=== PATIENT | female | born 1950 | race Caucasian/White ===

== ENCOUNTER 2016-10-04 09:58 | Day surgery (SDC) | payer MEDICARE ==
[2016-11-17] MEDS ORDERED: LINZESS145 MCG PO (17:24)
[2016-11-17] MEDS ORDERED: LIORESAL DPS20 MG PO (17:24)
[2016-11-17] MEDS ORDERED: COZAAR DPS50 MG PO (17:24)
[2016-11-17] MEDS ORDERED: REQUIP DPS2 MG PO (17:25)
[2016-11-17] MEDS ORDERED: NEURONTIN DPS400 MG PO (17:25)
[2016-11-17] MEDS ORDERED: XARELTO20 MG PO (17:25)
[2016-11-17] MEDS ORDERED: VANCOCIN-DPS1 GM IV (17:25)
[2016-11-17] MEDS ORDERED: PERCOCET 10 DPS1 TAB PO (17:26)
[2016-12-02] MEDS ORDERED: COZAAR DPS25 MG PO (17:13)
[2016-12-02] MEDS ORDERED: LINZESS145 MCG PO (17:13)
[2016-12-02] MEDS ORDERED: NEURONTIN DPS600 MG PO (17:14)
[2016-12-02] MEDS ORDERED: REQUIP DPS2 MG PO (17:14)
[2016-12-02] MEDS ORDERED: LASIX DPS20 MG PO (17:14)
[2016-12-02] MEDS ORDERED: XARELTO20 MG PO (17:16)
[2016-12-02] MEDS ORDERED: VITAMIN D31000 UNIT PO (17:17)
[2016-12-02] MEDS ORDERED: TYLENOL DPS325 MG PO (17:17)
[2016-12-02] MEDS ORDERED: PERCOCET 10 DPS1 TAB PO (17:17)
[2016-12-02] MEDS ORDERED: SENOKOT S1 TAB PO (17:17)
== END 2016-10-04 13:43 | disposition home or self-care (01) ==
DX: N31.9 Neuromuscular dysfunction of bladder, unspecified (principal); N39.45 Continuous leakage; N20.0 Calculus of kidney; R31.0 Gross hematuria; F17.210 Nicotine dependence, cigarettes, uncomplicated; M19.90 Unspecified osteoarthritis, unspecified site; G25.81 Restless legs syndrome; G89.29 Other chronic pain; M81.0 Age-related osteoporosis without current pathological fracture; Z88.0 Allergy status to penicillin; Z88.8 Allergy status to other drugs, medicaments and biological substances; Z79.899 Other long term (current) drug therapy; Z98.890 Other specified postprocedural states

== ENCOUNTER → 2016-10-04 | Outpatient (CLI) | payer MEDICARE ==
[~2016-10-04] MED LIST: COZAAR DPS25 MG PO; COZAAR DPS50 MG PO; LASIX DPS20 MG PO; LINZESS145 MCG PO; LIORESAL DPS20 MG PO; NEURONTIN DPS400 MG PO; NEURONTIN DPS600 MG PO; PERCOCET 10 DPS1 TAB PO; REQUIP DPS2 MG PO; SENOKOT S1 TAB PO; TYLENOL DPS325 MG PO; VANCOCIN-DPS1 GM IV; VITAMIN D31000 UNIT PO; XARELTO20 MG PO
== END | disposition home or self-care (01) ==
DX: R31.0 Gross hematuria (principal); N20.0 Calculus of kidney

== ENCOUNTER 2016-11-10 14:51 | Inpatient (IN) | payer MEDICARE ==
[~2016-11-10] VITALS: Ht 170.2 cm; Wt 76.5 kg
--- NOTE | ~2016-11-10 | ECH ---
Transthoracic Echocardiography Report (TTE) Demographics Patient Name DAREN LYONS Date of Study 11/11/2016 Patient Number [id number] Visit Number [id number] Date of 1950 Room Number 302 Accession Number [id number] Gender Female Age 66 year(s) Referring Daryl Cai Cris Phonograph Needle Tip Maker Naima Elkins [facility] Physician Physician Interpreting Karen Oropeza Design Engineering Specialist Physician MD Supervising Ordering Physician Eri Rahman MD/[facility] Nurse Stress Mathematical Statistician Conclusions Summary Technically adequate exam. The estimated left ventricular ejection fraction is 60-65%. Normal wall motion. Diastolic assessment reveals Grade I diastolic dysfunction. The left atrium is moderately dilated by LA volume index measurement. Mild tricuspid regurgitation by color Doppler. There is mild-moderate pulmonary hypertension. The pulmonary pressure (RVSP) is 44.7 mmHg. Normal RV systolic function. Procedure Type of Study TTE procedure Procedure Date Date: 11/11/2016 Start: 08:30 AM Technical Quality: Fair due to body habitus. Indications:Elevated Troponin and pre surgical clearance. Appropriate Use Criteria: 9 Height: 67 inches Weight: 146 pounds BSA: 1.77 m Rhythm: Within normal limits HR: 86 bpm BP: 159/76 mmHg M-Mode/2D Measurements LV Diastolic Dimension: 3.39 cm LV Systolic Dimension: 1.92 cm LV Septum Diastolic: 0.83 cm LV PW Diastolic: 0.93 cm AO Root Dimension: 2.51 cm Cardiac Output: 5.49 l/min LA Dimension: 3.23 cm Cardiac Index: 3.1 l/min*m RV Diastolic Dimension: 2.42 cm LA volume index: 49 ml/m LVOT: 1.61 cm LVOT VTI: 31.4 cm RV Base: 3.8 cm LV Stroke volume: 63.89 ml RV Mid: 3.1 cm LV Stroke volume index: 36.1 ml/m RV Length: 6.8 cm TAPSE: 3.2 cm TDI-S': 13 cm/s Doppler Measurements AV Peak Velocity: 1.69 m/s MV Peak E-Wave: 0.77 m/s AV Peak Gradient: 11.42 mmHg MV Peak A-Wave: 0.92 m/s AV Mean Gradient: 5.83 mmHg MV E/A Ratio: 0.84 LVOT Peak Velocity: 1.57 m/s MV P1/2t: 60.7 msec AV Area (Continuity):1.82 cm MV Deceleration Time: 190.6 msec TR Velocity:3.23 m/s MV Area (PHT): 3.62 cm TR Gradient:41.65 mmHg PV Peak Velocity: 1.04 m/s Estimated RAP:3 mmHg PV Peak Gradient: 4.33 mmHg Estimated RVSP: 45 mmHg Estimated PASP: 44.65 mmHg RA Area: 19.47 cm Findings Left Ventricle The left ventricle is normal in size . Diastolic assessment reveals Grade I diastolic dysfunction. Right Ventricle Normal right ventricle structure and function. Left Atrium The left atrium is moderately dilated by LA volume index measurement. Right Atrium The right atrium is mildly dilated. Mitral Valve Normal mitral valve structure and function. Aortic Valve The aortic valve is mildly sclerotic. Tricuspid Valve Normal tricuspid valve structure and function. Mild tricuspid regurgitation by color Doppler. There is mild-moderate pulmonary hypertension. The pulmonary pressure (RVSP) is 44.7 mmHg. Pulmonic Valve Normal pulmonic valve structure and function. Pericardial Effusion No evidence of pericardial effusion. Miscellaneous Visualized portions of the aortic root and ascending aorta appear normal in size. Pleural Effusion No evidence of pleural effusion. Contractility Score LV regional wall motion:(0-Non visualized 1-Normal 2-Hypokinesis 3-Akinesis 4-Dyskinesis 5-Aneurysm) Signature
--- NOTE | 2016-11-11 08:17 | HP ---
ADMIT: 11/10/2016 RM/LOC: 302 [facility] MR#: [id number] 26[address] [facility] [address] [place], [place] [address] DAREN LYONS [address] [address] History and Physical SEX: F AGE: 66 : 1950 DATE OF SERVICE: CHIEF COMPLAINT: Altered mental status. HISTORY OF PRESENT ILLNESS: Daren is a 66-year-old female, well known to myself from the Outpatient Clinic, who presented again to the Emergency Department today after being found confused by her mother earlier today. She has a past medical history significant for spastic cerebral palsy and associated neurogenic bladder. She has a chronic indwelling Graham catheter and follows with Urology for this. She has known nephrolithiasis and had been recommended to have this treated, but she had declined. Then yesterday, she developed back pain and came to the Emergency Department for evaluation and was found to have nephrolithiasis. She was discharged with pain medications and Urology followup. However, this morning, apparently her mother found her confused and had difficulty arousing her, so called 911. She was brought to the Emergency Department and again there was difficulty arousing her. Her blood pressure was also low with systolics in the 90s. A sepsis workup was ordered and was felt best for admission for further evaluation and treatment. PAST MEDICAL HISTORY: 1. Spastic cerebral palsy. 2. History of DVT, on chronic anticoagulation. 3. Gastroesophageal reflux disease. 4. Primary osteoarthritis of multiple joints, requiring steroid injections. 5. Tobacco abuse. 6. Osteoporosis. 7. Generalized anxiety disorder. 8. Recurrent cellulitis of the lower extremities. 9. Chronic pain, previously followed by Pain Management. 10.Chronic migraines. 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 12.History of left femur fracture. MEDICATIONS: 1. Fentanyl 50 mcg every 72 hours. 2. Baclofen 20 mg q.i.d. 3. Xarelto 20 mg daily. 4. Percocet 10/325, 1 to 2 tablets every 6 hours as needed. 5. Gabapentin 400 mg q.i.d. 6. Nystatin twice daily as needed for rash. 7. Imitrex 100 mg as needed for migraines. 8. Requip 2 mg at bedtime. 9. Omeprazole 20 mg daily. 10.Vitamin D 2000 units daily. 11.VESIcare 10 mg daily. 12.Tylenol as needed. 13.Milk of magnesia as needed. 14.Lasix 20 mg twice daily. ADMIT: 11/10/2016 RM/LOC: 302 [facility] MR#: [id number] [address] [address] DAREN LYONS [address] [place] [address] History and Physical SEX: F AGE: 66 : 1950 15.Linzess 145 mcg daily. 16.Multivitamin. SOCIAL HISTORY: The patient is a current smoker. She is disabled. She lives independently, but has Home Health following routinely. She previously lived in a nursing facility. FAMILY HISTORY: Significant for heart disease and hypertension in her father. ALLERGIES: SHE HAS ALLERGIES TO SULFA, PENICILLIN, AND NICKEL METAL. PAST SURGICAL HISTORY: Tonsillectomy, adenoidectomy, amputation, and fracture repair of her left femur. REVIEW OF SYSTEMS: As per HPI. Others reviewed and negative. PHYSICAL EXAMINATION: VITAL SIGNS: Temperature 99.2, blood pressure 97/42, pulse 114/22, and oxygen saturation 82% on room air. GENERAL: The patient was initially drowsy, but arouses to sternal rub. Following that, she was oriented x3 and answers questions appropriately. HEENT: Shows dry and tacky mucous membranes. Otherwise within normal limits. HEART: Regular rate and rhythm. No murmurs. LUNGS: Diminished throughout, but no crackles or wheezes. ABDOMEN: Soft and nondistended. Normal bowel sounds. EXTREMITIES: Have a foot amputation to the left lower extremity. Right lower extremity has mild erythema to the anterior navarro. This is without other skin lesion opening or exudate. LABORATORY DATA: Please see electronic record for full details. Of note, her creatinine was 1.1. Troponin elevated at 1.01. White blood cell count elevated at 11.4, with elevated neutrophils. Mild suppression of platelets at 91. Procalcitonin at 0.67. Urinalysis remarkable for 2+ blood, 3+ leukocyte esterase, and 25 white blood cell count. EKG shows sinus rhythm. Chest x-ray per my read shows left lower lobe consolidation. CT scan from overnight shows a 6 mm obstructing left ureteral stone with moderate hydronephrosis. ASSESSMENT AND PLAN: 1. Urinary tract infection. Urology has been consulted and made recommendations regarding antibiotics and these will be initiated in the Emergency Department. 2. Sepsis secondary to urinary tract infection. Sepsis protocol has been followed. Given her hypotension, we will monitor in ICU until stabilized. 3. Altered mental status, likely secondary to sepsis. This is actually improving at this time. We will continue to monitor. 4. Nephrolithiasis with hydronephrosis. Urology was consulted and is recommending ureteral stent. We will plan for this once she is medically stable. ADMIT: 11/10/2016 RM/LOC: 302 [facility] MR#: [id number] [facility] [address] [address] DAREN LYONS [address] [place] [address] History and Physical SEX: F AGE: 66 : 1950 5. Elevated troponin. She denies any chest pain or shortness of breath. EKG shows no acute ST change. We will trend this and have Cardiology evaluate. 6. Probable left lower lobe consolidation. She denies any cough or shortness of breath. Antibiotic coverage for her urinary tract infection should be sufficient, but we will continue to monitor respiratory status. 7. Chronic pain with narcotic dependency. We will continue to monitor. 8. Chronic spastic cerebral palsy. We will continue her home baclofen. 9. History of deep venous thrombosis, on chronic anticoagulation with Xarelto. This will need to be held leading up to her planned procedure. No signs of acute venous thromboembolism at this time. 10.Recurrent lower extremity cellulitis with acute right lower leg erythema concerning for cellulitis. She is going to be on broad-spectrum antibiotics. We will continue to monitor this. DISPOSITION: The patient will be monitored in the ICU overnight. Ayala Brito MD/ [facility] JOB #: [id number] CC: Ayala Brito, Attending Physician Ayala Brito, Family Physician
--- NOTE | 2016-11-11 13:58 | ER ---
ADMIT: 11/10/2016 RM/LOC: 302 [facility] MR#: [id number] [address] [place], [place] [address] DAREN LYONS [address] [address] Emergency Room Report SEX: F AGE: 66 : 1950 DATE: 11/10/2016 BRIEF ADDENDUM: Please see my T-sheet for complete review of systems, past medical history, and physical exam. CHIEF COMPLAINT: Decreased mental status. HISTORY OF PRESENT ILLNESS: This is a 66-year-old white female, who presents via EMS after she was found unresponsive. History is primarily gathered through records and EMS. She was in the Emergency Department yesterday and had blood work as well as CT done, diagnosed with 6 mm nephrolithiasis, ureterolithiasis on the left. She was discharged with [facility] with a Urology follow up. She was discharged in stable condition apparently without concerns for underlying infection. White count was not elevated at this time. Returns today via the EMS, unresponsive. She does have multiple scripts for pain medication as well as a chronic indwelling Graham catheter. She is typically alert and oriented. She does have an orthotic on the left lower extremity, ambulates with assistance of a cane. At present, she is unable to answer questions. She does not respond to commands. She does open her eyes. She does have a past medical history for cerebral palsy as well as nephrolithiasis, seen by Dr. Samuels. She does sound like a candidate for a stent placement. She is on chronic anticoagulation with Xarelto secondary to recurrent DVTs. This was ordered to be held yesterday. ALLERGIES: TO PENICILLIN AND SULFA. SOCIAL: She smokes half pack per day. Denies any recent drug or alcohol use. Per yesterday's reports, she does smoke a half pack per day. COURSE IN THE EMERGENCY ROOM: The patient was seen and examined. She is afebrile. However, initial blood pressure 97/47, respirations 22, and 82% on room air. She was not following commands. I did give her 0.4 mg of Narcan IV push. She was able to open her eyes and told me she was cold, but then returned to her typical state. Given her decreased level of conscious, did proceed to the sepsis routine as well as fluid resuscitation given her initial MAP was less than 65. Her blood pressures did improve maps into the 70s. LABORATORY DATA: Lab work shows white count 11.4, hemoglobin 15.3, hematocrit 49.5, platelets 91. Chemistries, lactic acid 2.0. UA shows 27 wbc's per high- power field. Positive leukocytes esterase and nitrite consistent with underlying urinary tract infection as well as obtained a clean catheter, Graham was changed. Sodium 144, potassium 5.2, CO2 of 27, creatinine 1.1, phos 3.0, calcium 7.6. AST and ALT within normal limits. Mag 1.7, calcium 8.4, CK 138, MB 2.5. She does have an elevated troponin at 1.010. EKG initially shows sinus rhythm. No ST-T or Q-wave abnormalities. Ventricular rate of 94. Given her state, I did phone Dr. Brito and made him aware of the patient. We will admit her to ICU for further evaluation and management. Pending labs at this time including alcohol urine drug, procalcitonin. Dr. Samuels did see the patient at bedside. He was consulted to see her. We will continue to ADMIT: 11/10/2016 RM/LOC: 302 [facility] MR#: [id number] [facility] [address] DAREN LYONS [address] [place] [address] Emergency Room Report SEX: F AGE: 66 : 1950 follow. We have started broad-spectrum antibiotics with meropenem and vancomycin. IMPRESSION: 1. Sepsis. 2. Urinary tract infection. 3. Elevated troponin. 4. Decreased LOC. 5. Left renal calculus. 6. Chest pain. 7. Recurrent deep venous thrombosis on chronic anticoagulation with Xarelto, currently held. DISPOSITION: The patient was admitted to the ICU in the care of Dr. Brito with Dr. Samuels as a consult. The patient was discharged to the floor in guarded condition. JUDY Monk / Davide Quintana MD / [place] JOB #: [id number] CC: Ayala Brito MD, Attending Physician Ayala Brito MD, Family Physician
[2016-11-17] MEDS ORDERED: COZAAR DPS50 MG PO (17:24)
[2016-11-17] MEDS ORDERED: LINZESS145 MCG PO (17:24)
[2016-11-17] MEDS ORDERED: LIORESAL DPS20 MG PO (17:24)
[2016-11-17] MEDS ORDERED: VANCOCIN-DPS1 GM IV (17:25)
[2016-11-17] MEDS ORDERED: XARELTO20 MG PO (17:25)
[2016-11-17] MEDS ORDERED: NEURONTIN DPS400 MG PO (17:25)
[2016-11-17] MEDS ORDERED: REQUIP DPS2 MG PO (17:25)
[2016-11-17] MEDS ORDERED: PERCOCET 10 DPS1 TAB PO (17:26)
--- NOTE | 2016-11-23 08:29 | DS ---
ADMIT: 11/10/2016 RM/LOC: 510 [facility] MR#: [id number] [address] [place], [place] [address] DAREN LYONS [address] [address] Discharge Summary SEX: F AGE: 66 : 1950 ADMISSION DATE: 11/10/2016 DISCHARGE DATE: 11/16/2016 DISCHARGE DIAGNOSES: 1. Acute on recurrent urinary tract infection with Corynebacterium. 2. Severe sepsis with hypotension and encephalopathy. 3. Right lower extremity cellulitis. 4. Left lower lobe pneumonia. 5. Hypoxemia. 6. Elevated troponins secondary to demand ischemia. 7. Chronic pain with narcotic dependency. 8. Chronic spastic cerebral palsy. 9. History of deep vein thrombosis on chronic anticoagulation. 10.Bilateral nephrolithiasis with obstructing left nephrolithiasis and associated hydronephrosis. 11.Tobacco abuse. 12.Poor venous access. 13.Mild hypokalemia. 14.Mild thrombocytopenia. 15.Hypertension, new onset. 16.Hypomagnesemia. CONSULTS: 1. James Samuels MD, Urology. 2. Josiah Hwang M.D., Cardiology. 3. Jennifer Garcia MD, Infectious Disease. PROCEDURES: Cystoscopy with left ureteral stent placement by Dr. Samuels on November 11, 2016. REASON FOR ADMISSION: The patient was admitted from the Emergency Department after presenting with altered mental status and findings consistent with urosepsis. Please see history and physical for full details. HOSPITAL COURSE: The patient was initially admitted to the Intensive Care Unit after presenting to the Emergency Department with hypotension and altered mental status secondary to presumed sepsis from urinary tract infection. She had known nephrolithiasis with hydronephrosis and had not yet made her appointment with Urology as it had been scheduled for the day of her admission. Given the presentation with sepsis, Urology was consulted through the Emergency Department and recommended ureteral stent placement for her hydronephrosis. She was treated with vancomycin and Levaquin intravenously. Blood pressures responded with IV fluid replacement. She was kept n.p.o. and her Xarelto from home was held. On her sepsis evaluation, there was also remarkable finding for an elevated troponin at 1.03. EKG was without acute findings and she had no symptoms of acute coronary syndrome. Cardiology was consulted and after trending the troponin without any significant elevation and a normal echocardiogram, they recommended proceeding with her procedure. It was felt that this elevated troponin was due to demand ischemia. The ADMIT: 11/10/2016 RM/LOC: 510 [facility] MR#: [id number] [address] [address] DAREN LYONS [address] [place] [address] Discharge Summary SEX: F AGE: 66 : 1950 patient's mental status and blood pressure remarkably improved by hospital day number one. A chest x-ray did show left lower lobe consolidation and she was requiring 1-2 L of oxygen to maintain normal oxygen saturation. The patient has chronic pain secondary to spastic cerebral palsy. She did require IV Dilaudid while she was n.p.o. and unable to take her usual home medications. She did not require any IV pain medication once home oral meds were restarted. Her ureteral stent was placed on the afternoon of November 11, 2016. Please see operative note for full details. No obvious complications. She was transitioned out of the ICU following her procedure. The patient is a known smoker and a nicotine patch was ordered as well as tobacco cessation encouraged. The patient has difficult venous access and therefore, a midline catheter was placed with likely need of long-term IV antibiotics. On the morning of November 12, the patient was symptomatically improving. Her home Xarelto was able to be resumed for her chronic anticoagulation due to history of DVT. Her back pain was improved. Her infection markers also improved. She did continue to require oxygen. She had mild hypokalemia of 3.6, and this was replaced orally. She also had mild thrombocytopenia at 78, but this was not symptomatic. She began to run elevated blood pressures with a maximum of 177/83. She was treated with oral losartan daily and blood pressures were within normal limits at that time. By November 12, she was able to transition to telemetry status. Her IV was locked on November 13. We awaited urinary culture results, which did return Corynebacterium on November 15. Given her numerous antibiotic allergies, Infectious Disease was consulted and recommended she continue oral Levaquin and IV vancomycin. She will continue with this through her home health agency and was felt stable for discharge by November 16, 2016. Discharge medications: 1. Cozaar 50 mg daily. 2. Levaquin 750 mg daily, to end on November 17. 3. Linzess 145 mcg daily. 4. Baclofen 10 mg q.i.d. 5. Neurontin 400 mg q.i.d. 6. Requip 20 mg at bedtime. 7. Xarelto 20 mg daily. 8. Vancomycin 1.25 g IV daily, to end on November 25. 9. Percocet 10/325, 1-2 tabs every 4 hours as needed per home supply. ADMIT: 11/10/2016 RM/LOC: 510 [facility] MR#: [id number] [address] [address] DAREN LYONS [address] [place] [address] Discharge Summary SEX: F AGE: 66 : 1950 DISCHARGE INSTRUCTIONS: The patient was discharged to home in stable condition. She will continue with home health care and will have IV vancomycin given daily at home. She will continue with her previous diet and activity. We will have her start with 2 L of oxygen at night. We will plan to do a home nocturnal oxygen assessment in the next couple of weeks to see if this can be weaned. She will follow up with Urology in 7-10 days. She will follow up with Cardiology in 2-3 weeks. She will follow up with Infectious Disease as needed. She will follow up with myself in one week. Routine precautions were given. Greater than 30 minutes was spent in discharge. Ayala Brito MD/ [place] JOB #: [id number] CC: Ayala Brito MD, Attending Physician Ayala Brito MD, Family Physician
--- NOTE | 2016-11-24 07:14 | CO ---
ADMIT: 11/10/2016 RM/LOC: 302 [facility] MR#: [id number] [address] [place], [place] [address] ABUNDIOMARNI DAREN Manjarrez [address] [place] [address] [place] [address] Consultation SEX: F AGE: 66 : 1950 DATE OF CONSULTATION: 11/11/2016 ATTENDING PHYSICIAN: Ayala Brito CONSULTING PHYSICIAN: Josiah Hwang MD REASON FOR CONSULTATION: Elevated troponin and preop. HISTORY OF PRESENT ILLNESS: The patient was admitted after coming in with lower back pain that radiated to the front. After workup, it was discovered that she had bilateral kidney stones. She also had a UTI and a right leg cellulitis as well as sepsis. During the workup of these things, it was discovered that her troponin level was mildly elevated. It was 1.360. The patient does not have any signs of acute coronary syndrome including chest pain, shortness of breath, nausea, diaphoresis, numbness, or tingling. The patient's cardiac history is positive for legs and ankle swelling but this is due to an associated cellulitis. Patient has a pertinent history of DVT in the legs in which she takes Xarelto for. Patient's cardiac history is negative for any previous heart attack, stress tests, heart surgery, or stent procedure. Echocardiogram had never been performed except for this morning for the firsttime. She denies any chest pain, tightness, heaviness, no shortness of breath with activity, or waking up gasping for air. She does not get short of breath while lying down or need more than one pillow to sleep on. She does not feel her heart beat skip or pound too fast. She denies fainting, dizziness, lightheadedness, history of pericarditis, rheumatic fever, or heart murmur. The patient is wheelchair bound, so she does deny any pain in the calves, thighs, or buttocks when walking. She currently does not have any sores on her legs or feet. She denies any previous surgery on her arteries, any history of aneurysms, or having done any carotid Dopplers or arterial Dopplers in the past. She denies varicose vein. The patient's cardiovascular risk factor survey reveals 1/2 pack per day history of smoking over the past approximately 40 years. She denies any history of high blood pressure or high cholesterol. She is not a diabetic. FAMILY HISTORY: Heart disease in which her dad had coronary artery disease. Family history is negative for diabetes, cancer, or stroke. ALLERGIES: PENICILLIN, CEPHALOSPORIN, CARBAPENEMS, SULFA, AND DARIFENACIN. CURRENT MEDICATIONS: 1. Levaquin IV. 2. She is also currently on normal saline. 3. Tylenol is listed p.r.n. 4. Nitrostat 0.4 mg sublingual p.r.n. 5. Dilaudid p.r.n. 6. Morphine p.r.n. 7. Oxycodone/Tylenol 10/325 mg every 6 hours p.r.n. 8. Ropinirole 10 mg at night. 9. Gabapentin 400 mg q.i.d. ADMIT: 11/10/2016 RM/LOC: 302 [facility] MR#: [id number] [facility] [address] [address] DAREN LYONS [address] [place] [address] Consultation SEX: F AGE: 66 : 1950 10.Baclofen 20 mg q.i.d. 11.Tylenol/hydrocodone every 4 hours p.r.n. 12.Xarelto 20 mg daily. 13.Nashua 5/325 mg every 4 hours p.r.n. 14.Cipro 500 mg b.i.d. CURRENT MEDICAL PROBLEMS: Bilateral nephrolithiasis, urinary tract infection, right lower leg cellulitis, sepsis, elevated troponin. PAST SURGICAL HISTORY: Left lower leg amputation, left femur fixation, bilateral cataracts. SOCIAL HISTORY: The patient does not follow special diet. She does use caffeine. She admits to coffee 2 cups daily approximately. She rarely uses alcohol. She denies any drug use or abuse. 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 Her marital status is . Smoking history listed above. FAMILY HISTORY: Listed above. REVIEW OF SYSTEMS: GENERAL: The patient denies tiring easily. She denies recent weight loss or weight gain. She does admit to recent fever, chills, or sweats associated with recent cellulitis, urinary tract infection, or sepsis. EYES: The patient denies blurry vision, glaucoma, partial or total loss of vision or lenses. She does have a history of 4 cataracts. THROAT, MOUTH, AND EARS: The patient denies any problems with nose, sinus, throat, hearing or ears. RESPIRATORY: The patient denies history of asthma, wheezing, emphysema, bronchitis, chronic cough, or bloody sputum. Denies snoring loudly or waking up more than once a night. She denies being tired first thing in the morning. GASTROINTESTINAL: The patient denies any history of heartburn, acid reflux, difficulty swallowing, hiatal hernia, stomach ulcer, rectal bleeding, black or bloody stools, gallbladder problems, liver disease or hepatitis. GENITOURINARY: The patient denies any problems with urination. She does admit to urinary tract infections in the past as well as her recent urinary tract infection. She does admit to having kidney stones as well as blood in the stool. Blood in the urine at times in which a cystoscopy was done in the past and is planning for this afternoon as well for her renal stones. MUSCULOSKELETAL: The patient does admit to arthritis and muscle joints and pains. She denies any history of gout. ENDOCRINE: The patient denies any thyroid problems. HEMATOLOGY AND LYMPHATIC: The patient denies any history of any anemia, bleeding problems, or cancer. NEUROLOGIC: The patient denies any history of stroke, seizure disorder, numbness or tingling. She does have a pertinent positive history for chronic headaches and migraine. PSYCHIATRIC: The patient denies any history of mental illness, depression, or anxiety. ADMIT: 11/10/2016 RM/LOC: 302 [facility] MR#: [id number] 2620 [facility] [address] [place], [place] [address] DAREN LYONS 105 [facility] [address] [place] [address] Consultation SEX: F AGE: 66 : 1950 PHYSICAL EXAMINATION: GENERAL: No acute distress, alert. HEAD, EARS, EYES, NOSE, AND THROAT: Normocephalic, atraumatic. Moist mucous membranes. NECK: JVD normal. No lymphadenopathy. No bruits. HEART: Regular rate and rhythm. No murmurs, clicks, rubs, or gallops. LUNGS: Clear to auscultation. ABDOMEN: Soft and nontender. EXTREMITIES: Left lower foot amputation, right lower leg cellulitis. LABORATORY DATA: Sodium 144, potassium 4.4, chloride 111, CO2 of 25, BUN 16, creatinine 0.9, glucose 97. White blood cell count is 12.6, hemoglobin 10.0, hematocrit 45.5, platelets 92. Calcium measured is 7.3, corrected calcium 8.4. Magnesium level is 1.5. CK-MB drawn was 8.4, troponin 1.360. INR is 1.26. ASSESSMENT: 1. Elevated troponin. EKG does not show ischemic changes. Echo shows normal ejection fraction and she does not have any chest pain. No evidence of acute coronary syndrome. Troponin elevation appears to be secondary to demand ischemia. We would consider stress testing in the future as outpatient. 2. Sepsis. 3. Urinary tract infection. 4. History of deep venous thrombosis on Xarelto. 5. Spastic cerebral palsy. 6. Smoker. 7. Preop. PLAN: Okay to proceed with surgery without further cardiac testing. Continue medical therapy. JUDY Gonzalez Student / Josiah Hwang MD / modl JOB #: [id number] CC: Ayala Brito, Attending Physician Ayala Brito, Family Physician
--- NOTE | 2016-11-30 09:47 | CO ---
ADMIT: 11/10/2016 RM/LOC: 510 [facility] MR#: [id number] 2620 [facility] [address] [place], [place] [address] DAREN GOLDSTEIN [address] [place] [address] Consultation SEX: F AGE: 66 : 1950 DATE OF CONSULTATION: 11/15/2016 ATTENDING PHYSICIAN: Ayala Brito CONSULTING PHYSICIAN: Jennifer Garcia MD REASON FOR CONSULTATION: Antibiotic management. Thank you, Dr. Brito, for the consult and involving me in this patient's care. HISTORY OF PRESENT ILLNESS: Ms. Goldstein is a 66-year-old woman with history of spastic cerebral palsy, who presented to the ER with confusion. She has a history of neurogenic bladder and has chronic indwelling Graham catheter. She was found to have left obstructing ureteral calculus with associated hydronephrosis and sepsis. She was evaluated by Dr. Samuels, who did a cystoscopy and left ureteral stent placement on 11/11/2016. Her urine culture grew Corynebacterium species. There is also GPC growing in the blood, still pending identification. She was also noted to have left lower lobe consolidation and was started on levofloxacin for the same. At present, she denies any complaints and feels well. PAST MEDICAL HISTORY: 1. Spastic cerebral palsy. 2. History of DVT, on chronic anticoagulation. 3. Osteoarthritis. 4. Tobacco use. 5. Gastroesophageal reflux disease. 6. Generalized anxiety disorder. 7. Osteoporosis. 8. Recurrent lower extremity cellulitis. 9. Chronic pain. 10.Amputation of left foot. 11.Chronic migraines. 12.History of left femur fracture. ALLERGIES: PENICILLIN, WHICH GIVES SEVERE RASH. ALLERGIC TO CEPHALOSPORIN, CARBAPENEMS, SULFA, AND DARIFENACIN. CURRENT MEDICATIONS: Include: 1. Cozaar. 2. Linzess. 3. Lioresal. 4. Neurontin. 5. Requip. 6. Xarelto. 7. Levaquin 750 mg once daily. 8. Vancomycin 1 g twice daily. ADMIT: 11/10/2016 RM/LOC: 510 [facility] MR#: [id number] [address] [address] ABUNDIODAREN GRIDER 105 [facility] [address] [place] [address] Consultation SEX: F AGE: 66 : 1950 SOCIAL HISTORY: She lives alone at home. Smokes half pack per day. Drinks alcohol once a day. Denies any recreational drug use. FAMILY HISTORY: Significant for heart disease in the father. PAST SURGICAL HISTORY: Tonsillectomy, adenoidectomy, left foot amputation, and left femur fracture repair. REVIEW OF SYSTEMS: A 10-point review of systems negative except as mentioned in the HPI. PHYSICAL EXAMINATION: VITAL SIGNS: Current temperature 97.7, T-max 102.6 on admission, heart rate 70, respirations 16, blood pressure 117/70, and 90% on 2 L. GENERAL: No acute distress. HEENT. Head is normocephalic and atraumatic. Extraocular movements intact. CHEST: Decreased breath sounds bilaterally. No wheezes, rales, or rhonchi. CARDIOVASCULAR: S1 and S2 heard. Regular rate and rhythm. ABDOMEN: Soft, nontender, and nondistended. Active bowel sounds. MUSCULOSKELETAL: Left foot amputation. SKIN: There is diffuse erythema on the right lower extremity and mild erythema on the left lower extremity. DATA REVIEW: Per HPI. Repeat urine culture grew more than 100,000 colonies of Corynebacterium amycolatum, less than 10,000 CFUs of gram-positive cocci. CT scan: CT scan of abdomen and pelvis showed left lower lobe pneumonia and small effusion. Left proximal ureteral obstructing calculus and probable cholelithiasis and bilateral nephrolithiasis. ASSESSMENT AND PLAN: 1. Corynebacterium urinary tract infection. ADMIT: 11/10/2016 RM/LOC: 510 [facility] MR#: [id number] [address] [address] GRECIADONISDAREN 105 [facility] [address] [place] [address] Consultation SEX: F AGE: 66 : 1950 2. GPCs in the blood, pending identification. 3. Left lower lobe community-acquired pneumonia. 4. Right leg cellulitis. 5. Spastic cerebral palsy. PLAN: At this time, we will continue with levofloxacin for another 2 days to finish a complete total one week course of levofloxacin for pneumonia. I will continue her on IV vancomycin for the Corynebacterium UTI, this will also cover the gram-positive cocci in the blood as well as her right leg cellulitis. She will need a total of 2 weeks treatment until 11/25/2016. I instructed the patient to call if new or worsening symptoms. She will need IV antibiotics as an outpatient. Jennifer Garcia MD/ evonne JOB #: [id number] CC: Ayala Brito, Attending Physician Ayala Brito, Family Physician
--- NOTE | 2016-12-02 08:28 | CO ---
ADMIT: 11/10/2016 RM/LOC: [facility] MR#: [id number] 2620 [facility] [address] [place], [place] [address] DAREN LYONS [address] [place] [address] Consultation SEX: F AGE: 66 : 1950 DATE OF CONSULTATION: 11/10/2016 ATTENDING PHYSICIAN: Davide Quintana CONSULTING PHYSICIAN: James Samuels MD REASON FOR CONSULTATION: 1. Sepsis. 2. Left ureteral calculus. 3. Altered level of consciousness. HISTORY OF PRESENT ILLNESS: Patient is a pleasant 66-year-old white female. She has a history of cerebral palsy, chronic indwelling Graham catheter. Recent cystoscopy demonstrated an unremarkable bladder lumen. She did have a CT scan which demonstrated bilateral nephrolithiasis. We did discuss treatment, but the patient refused at that time. The patient presented yesterday with acute onset of left flank pain. She was in otherwise normal state of health. Lab evaluation was unremarkable with a normal white blood cell count, normal serum creatinine. CT scan demonstrated a 6 mm proximal left ureteral stone with associated hydronephrosis. She was discharged home on Cipro antibiotic therapy. She presents today secondary to family concerns of altered level of consciousness. The patient's white blood cell count is 11.4. Serum creatinine is 1.1, lactic acid 2.0. Blood culture is pending. Potassium is 5.2. Troponin 1.01. The patient not really able to provide any useful or meaningful history at this present time. She does state that her back hurts. PAST MEDICAL HISTORY: 1. Significant for cerebral palsy. 2. Recurrent urinary tract infection. 3. History of nephrolithiasis. 4. Depression. 5. History of hypernatremia. 6. History of hyperkalemia. 7. Migraine. 8. Spasticity. 9. Gastroesophageal reflux disease. 10.History of thrombocytopenia. 11.Anemia. 12.Osteoporosis. 13.History of constipation. 14.History of alcohol abuse. 15.Previous tonsillectomy. 16.Recent cystoscopy. 17.Left foot amputation. ALLERGIES: TO PENICILLIN, SULFA, NICKEL, STAINLESS STEEL, AND ENABLEX. CURRENT MEDICATIONS: Listed in the patient chart. Her Mini is on hold. ADMIT: 11/10/2016 RM/LOC: [facility] MR#: [id number] [address] [address] SERENA DAREN Loki 105 [facility] [address] [place] [address] Consultation SEX: F AGE: 66 : 1950 PHYSICAL EXAMINATION: GENERAL: Patient is confused. VITAL SIGNS: Blood pressure is stable at 109/50, heart rate in the 90s. ABDOMEN: Soft, questionable diffusely tender although difficult to discern. BACK: Question mild left-sided costovertebral angle tenderness. GYNECOLOGIC: The patient has indwelling Graham catheter draining clear urine. LABORATORY DATA: White blood cell count 11.4, platelet count 91. Serum creatinine 1.1. Lactic acid 2.0. CT scan from last night demonstrates a 6-mm proximal ureteral stone on the left. ASSESSMENT: Sepsis, urinary tract infection, and obstructing stone. Unfortunately I do not feel that the patient is stable at the present time for general anesthesia to facilitate stent placement. I do feel that she is at high risk for percutaneous nephrostomy placement given ongoing anticoagulant therapy and thrombocytopenia. I have discussed the situation with Dr. Ayala Brito. I have recommended vigorous IV fluid resuscitation with broad-spectrum antibiotic therapy. Hopefully this will stabilize the patient making surgical intervention more feasible. RECOMMENDATIONS: 1. Recommend fluid resuscitation and stabilization of the patient. 2. Broad-spectrum antibiotics with meropenem and vancomycin based on previous culture data. 3. We will plan tentatively for OR for cystoscopy and stent placement on the left tomorrow. 4. I have recommended we repeat a renal colic CT scan in the morning just to ascertain that there is not any new findings as far as position of stone or potential obstruction on the right, because she does have some stones over there as well. James Samuels MD/ evonne JOB #: [id number] CC: Davide Quintana, Attending Physician UNKNOWN, Family Physician
--- NOTE | 2016-12-02 08:28 | OR ---
ADMIT: 11/10/2016 RM/LOC: 302 [facility] MR#: [id number] 2620 [facility] [address] [place], [place] [address] DAREN LYONS [address] [address] Operative/Delivery Room Report SEX: F AGE: 66 : 1950 SURGERY DATE: 11/11/2016 SURGEON: James Samuels MD PREOPERATIVE DIAGNOSES: Left obstructing ureteral calculus with associated left hydronephrosis, urinary tract infection, and early sepsis. POSTOPERATIVE DIAGNOSES: Left obstructing ureteral calculus with associated left hydronephrosis, urinary tract infection, and early sepsis. PROCEDURE: Cystoscopy with left retrograde pyelogram, left ureteral stent placement. ANESTHESIA: General. INDICATION: The patient is a pleasant white female with bilateral nephrolithiasis, developed very obstructing ureteral stone, developed evidence of urinary tract infection and sepsis. She is taken now for stent placement on the left. CT scan this morning demonstrated a stable right renal calculi. Risks and benefits have been discussed, the patient does consent to procedures. She has been maintained on vancomycin and Levaquin since the time of admission. PROCEDURE: The patient was taken to OR #5, placed on the table in supine position. After adequate anesthesia, carefully and gingerly placed in the dorsal lithotomy position; careful to not over flex either the knees or the hips. We did assure that all pressure points were appropriately padded. A time-out was taken for patient name, date of , planned procedure, preoperative antibiotics, and allergies. Graham catheter was removed and genitalia prepped and draped in usual sterile fashion. A 22-Welsh cystoscope with 30-degree lens was advanced to the level of bladder. The urethra was unremarkable. Upon entering the bladder. The ureteral orifice visualized in normal position. There was a small stone in the bladder, which was retrieved and sent for stone analysis. No other mucosal abnormalities were noted. I then was able to cannulate the left ureteral orifice with an angled-tip Glidewire. As I advanced this more proximally, I met a little resistance about the transverse process of L4. With just a little bit of gentle pressure on the wire, did go on up into the proximal collecting system. I did remove the scope. A 5-Welsh ureteral access catheter was advanced to the upper collecting system. With removal of the guidewire, we had a nice return of brisk hydronephrotic drip. Urine was sort of slightly blood tinged. Approximately 5 mL were drawn and sent for culture. I decided to inject some contrast to outlining a dilated collecting ADMIT: 11/10/2016 RM/LOC: 302 [facility] MR#: [id number] [address] [address] DAREN LYONS [address] [place] [address] Operative/Delivery Room Report SEX: F AGE: 66 : 1950 system. The guidewire was replaced, and ureteral access catheter was removed. The guidewire was then backloaded through the cystoscope. Cystoscope was advanced to the level of the bladder. Under direct fluoroscopic visualization, a 6-Welsh 24 cm double-J stent was placed. With removal of the guidewire, we had a nice curl within the renal pelvis, nice curl within the urinary bladder. The bladder was left filled to capacity and the scope withdrawn. A 16-Welsh Graham catheter was then passed per urethra, 10 mL instilled in the Graham balloon. This seats nicely at the bladder neck. This was left to gravity drainage. The patient taken out of dorsal lithotomy position, awoke from anesthesia, extubated uneventfully, and transferred to recovery room in stable condition. She will continue with inpatient management. James Samuels MD/ evonne JOB #: [id number] CC: Ayala Brito, Attending Physician Ayala Brito, Family Physician
[2016-12-02] MEDS ORDERED: COZAAR DPS25 MG PO (17:13)
[2016-12-02] MEDS ORDERED: LINZESS145 MCG PO (17:13)
[2016-12-02] MEDS ORDERED: NEURONTIN DPS600 MG PO (17:14)
[2016-12-02] MEDS ORDERED: LASIX DPS20 MG PO (17:14)
[2016-12-02] MEDS ORDERED: REQUIP DPS2 MG PO (17:14)
[2016-12-02] MEDS ORDERED: XARELTO20 MG PO (17:16)
[2016-12-02] MEDS ORDERED: PERCOCET 10 DPS1 TAB PO (17:17)
[2016-12-02] MEDS ORDERED: VITAMIN D31000 UNIT PO (17:17)
[2016-12-02] MEDS ORDERED: SENOKOT S1 TAB PO (17:17)
[2016-12-02] MEDS ORDERED: TYLENOL DPS325 MG PO (17:17)
== END 2016-11-16 16:50 | disposition home health service (06) | DRG 871 ==
LOC: ER 14:51 → 5MS 17:30 → 3ICU 17:30 → 5MS 11-12 15:57
PROVIDERS: ADMIT Family Medicine
PROC: 0T778DZ Dilation of Left Ureter with Intraluminal Device, Via Natural or Artificial Opening Endoscopic (ICD-10-PCS; principal; 2016-11-11)
PROC: BT1F1ZZ Fluoroscopy of Left Kidney, Ureter and Bladder using Low Osmolar Contrast (ICD-10-PCS; principal; 2016-11-11)
DX: A41.9 Sepsis, unspecified organism (principal); J18.9 Pneumonia, unspecified organism; G93.40 Encephalopathy, unspecified; I24.8 Other forms of acute ischemic heart disease; D69.6 Thrombocytopenia, unspecified; I95.9 Hypotension, unspecified; F11.20 Opioid dependence, uncomplicated; N39.0 Urinary tract infection, site not specified; N13.6 Pyonephrosis; L03.115 Cellulitis of right lower limb; G80.1 Spastic diplegic cerebral palsy; B96.89 Other specified bacterial agents as the cause of diseases classified elsewhere; R65.20 Severe sepsis without septic shock; R09.02 Hypoxemia; E87.6 Hypokalemia; E83.42 Hypomagnesemia; D64.9 Anemia, unspecified; N31.9 Neuromuscular dysfunction of bladder, unspecified; F17.210 Nicotine dependence, cigarettes, uncomplicated; I10 Essential (primary) hypertension; K59.00 Constipation, unspecified; K21.9 Gastro-esophageal reflux disease without esophagitis; F32.9 Major depressive disorder, single episode, unspecified; M15.9 Polyosteoarthritis, unspecified; M81.0 Age-related osteoporosis without current pathological fracture; F41.1 Generalized anxiety disorder; G89.29 Other chronic pain; F17.200 Nicotine dependence, unspecified, uncomplicated; Z86.718 Personal history of other venous thrombosis and embolism; Z79.01 Long term (current) use of anticoagulants; Z89.432 Acquired absence of left foot; Z99.3 Dependence on wheelchair; Z82.49 Family history of ischemic heart disease and other diseases of the circulatory system

== ENCOUNTER 2016-11-21 15:40 | Inpatient (IN) | payer MEDICARE ==
[~2016-11-21] VITALS: Ht 160 cm; Wt 72.5 kg
[~2016-11-21 15:40] MED LIST changes: -COZAAR DPS25 MG PO; -LASIX DPS20 MG PO; -NEURONTIN DPS600 MG PO; -SENOKOT S1 TAB PO; -TYLENOL DPS325 MG PO; -VITAMIN D31000 UNIT PO
[2016-12-02] MEDS ORDERED: LINZESS145 MCG PO (17:13)
[2016-12-02] MEDS ORDERED: COZAAR DPS25 MG PO (17:13)
[2016-12-02] MEDS ORDERED: REQUIP DPS2 MG PO (17:14)
[2016-12-02] MEDS ORDERED: LASIX DPS20 MG PO (17:14)
[2016-12-02] MEDS ORDERED: NEURONTIN DPS600 MG PO (17:14)
[2016-12-02] MEDS ORDERED: XARELTO20 MG PO (17:16)
[2016-12-02] MEDS ORDERED: SENOKOT S1 TAB PO (17:17)
[2016-12-02] MEDS ORDERED: PERCOCET 10 DPS1 TAB PO (17:17)
[2016-12-02] MEDS ORDERED: VITAMIN D31000 UNIT PO (17:17)
[2016-12-02] MEDS ORDERED: TYLENOL DPS325 MG PO (17:17)
--- NOTE | 2016-12-28 14:36 | DS ---
ADMIT: 11/21/2016 RM/LOC: 605 [facility] MR#: [id number] [address] 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 Other comorbid conditions per initial H and P. Other diagnoses per hospital course below. HOSPITAL COURSE: Please see my initial H and P for details prior to transfer to the IRU. Xarelto was continued for DVT prophylaxis. Pain and bowel regimen adjusted. Percocet changed to Oxy-IR. Neurontin and baclofen reduced frequency and cut in half to help with strength for transfers. Lab was monitored regularly. Dietitian followed to optimize nutrition. Pharmacy followed to optimize medication management. Graham was changed monthly and flushed p.r.n. per home routine. Baclofen was set at 5 mg p.o. t.i.d. and Neurontin 300 mg t.i.d. No worsening spasticity noticed on a decreased dose. Pain was worse though so continued to adjust medications for pain. Senokot-S for constipation. OxyIR switched back to Percocet 10/325 per her usual home routine that seemed to work better for her per the patient. Neurontin increased to 600 mg 4 times a day. Baclofen changed to 5 mg 4 times a day. Vitamin D deficiency borderline, gave 20,000 units once and 1000 units daily. Baclofen changed to b.i.d. and b.i.d. p.r.n. Peripheral IV discontinued, no longer necessary and IV medications no longer necessary, discontinued on 11/25/2016. Senna-S and milk of magnesia for constipation. Baclofen discontinued. Cozaar decreased to 25 mg for nonspecific low blood pressure readings. Imodium and Zofran no longer necessary. PRNs for constipation given. The patient was allowed to go on outing. The patient was medically stable at the time of discharge. Please see IRU interdisciplinary discharge summary for details regarding progress in therapy. DISCHARGE DISPOSITION: Home alone, but does receive support from her son and mother as well as [facility] working with her as is the [facility] team, will resume [facility] at home for home health care upon discharge. Son provided transport. DISCHARGE MEDICATIONS: Please see discharge med rec. As far as Percocet, to resume home supply. No new prescription was given for Percocet. Home health included RN, OT, home health aide. FOLLOWUP: Dr. Hwang on December 22, Dr. Brito on December 04, Dr. Samuels and [facility] on December 12. [facility] on December 07. Godwin Barlow MD/ evonne JOB #: [id number] CC:
== END 2016-12-01 11:37 | disposition home health service (06) | DRG 52 ==
LOC: 6IRU 15:40
PROVIDERS: ADMIT Physical Medicine & Rehabilitation
PROC: F08Z0FZ Bathing/Showering Techniques Treatment using Assistive, Adaptive, Supportive or Protective Equipment (ICD-10-PCS; principal; 2016-11-21)
PROC: F08Z2FZ Grooming/Personal Hygiene Treatment using Assistive, Adaptive, Supportive or Protective Equipment (ICD-10-PCS; principal; 2016-11-21)
PROC: F08Z1FZ Dressing Techniques Treatment using Assistive, Adaptive, Supportive or Protective Equipment (ICD-10-PCS; principal; 2016-11-21)
PROC: F07Z9FZ Gait Training/Functional Ambulation Treatment using Assistive, Adaptive, Supportive or Protective Equipment (ICD-10-PCS; principal; 2016-11-21)
DX: G80.0 Spastic quadriplegic cerebral palsy (principal); J18.9 Pneumonia, unspecified organism; L03.115 Cellulitis of right lower limb; G47.00 Insomnia, unspecified; N20.0 Calculus of kidney; R60.0 Localized edema; G25.81 Restless legs syndrome; F17.200 Nicotine dependence, unspecified, uncomplicated; K59.09 Other constipation; M54.5 Low back pain; G89.29 Other chronic pain; M81.0 Age-related osteoporosis without current pathological fracture; K21.9 Gastro-esophageal reflux disease without esophagitis; E55.9 Vitamin D deficiency, unspecified; I10 Essential (primary) hypertension; M19.90 Unspecified osteoarthritis, unspecified site; R03.1 Nonspecific low blood-pressure reading; Z89.512 Acquired absence of left leg below knee; Z86.718 Personal history of other venous thrombosis and embolism; Z79.01 Long term (current) use of anticoagulants